=== PATIENT | male | born 1980 | race Caucasian/White ===

== ENCOUNTER 2017-09-04 10:05 | Emergency (ER) | payer BC, OTHER ==
[2017-09-04 10:57] VITALS: BP 126/89
--- NOTE | 2017-09-04 11:15 | UC ---
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 Last vomiting was midnight last night " sudden onset. last diarrhea before coming - no blood. last vomiting ~ 12 hrs ago. no wheezing. no asthma, denies smoking. recently moved back to [facility] from [facility]. did not check temp at home but had significant sweating last night. - History of Current Complaint Chief Complaint: UCRespiratory Stated Complaint: FLU SYMPTOMS Time Seen by Provider: 09/04/17 11:13 - Allergies/Home Medications Allergies/Adverse Reactions: Allergies Allergy/AdvReac Type Severity Reaction Status Date / Time No Known Allergies Allergy Verified 09/04/17 10:57 Home Medications: Home Medications Acetaminophen TAB* [Tylenol TAB*] 650 mg PO ONCE PRN 09/04/17 [History Confirmed 09/04/17] Escitalopram Oxalate [Lexapro 20 mg] 20 mg PO QPM 09/04/17 [History Confirmed ] Phenylephrine-Chlorpheniramine [Desiree-Tiver[place] Plus Cold & 5-2-10-325 mg] 2 cap PO ONCE PRN 09/04/17 [History Confirmed 09/04/17] PMH/Surg Hx/FS Hx/Imm Hx Previously Healthy: Yes - Surgical History Surgical History: None - Family History Known Family History: Positive: Hypertension - Social History Alcohol Use: Occasionally Substance Use Type: None Smoking Status (MU): Never Smoked Tobacco Review of Systems Constitutional: Fever, Chills, Fatigue Skin: Negative Eyes: Negative ENT: Negative Respiratory: Cough - which causes BARRETO. Cardiovascular: Negative Gastrointestinal: Negative Genitourinary: Negative Motor: Negative Neurovascular: Negative Musculoskeletal: Negative Neurological: Negative Psychological: Negative Is Patient Immunocompromised?: No All Other Systems Reviewed And Are Negative: Yes Physical Exam Triage Information Reviewed: Yes Appearance: Ill-Appearing - lying on exam table Vital Signs: Initial Vital Signs Temp 99.9 F 09/04/17 10:49 Pulse 113 09/04/17 10:49 Resp 20 09/04/17 10:49 BP 126/89 09/04/17 10:49 Pulse Ox 98 09/04/17 10:49 Vital Signs Reviewed: Yes Eye Exam: Normal ENT Exam: Normal ENT: Positive: Pharynx normal, TMs normal, Other: - no sinus tenderness Dental Exam: Normal Neck exam: Normal Neck: Positive: Supple, Nontender, No Lymphadenopathy Respiratory: Positive: No respiratory distress, Decreased breath sounds, Rhonchi - right, Wheezing - b/l. Negative: Crackles, Stridor Cardiovascular Exam: Normal Cardiovascular: Positive: RRR, No Murmur, Pulses Normal, Brisk Capillary Refill Abdomen Description: Positive: Nontender, Soft Musculoskeletal Exam: Normal Neurological Exam: Normal Psychological Exam: Normal Skin Exam: Normal UC Diagnostic Evaluation - Laboratory O2 Sat by Pulse Oximetry: 98 Respiratory Course/Dx - Course Course Of Treatment: CXR-LLL pneumonia. rapid flu negative. abx, prednisone, albuetol and rest. f/u 4 wks rpt CXR - Differential Dx/Diagnosis Differential Diagnosis/HQI/PQRI: Asthma, Bronchitis, Lower Resp Infection, Sinusitis Provider Diagnoses: pneumonia Discharge - Discharge Plan Condition: Stable Disposition: HOME Prescriptions: Albuterol HFA INHALER* [Ventolin HFA Inhaler*] 2 puff INH Q4H PRN #1 mdi PRN Reason: Cough Amoxicillin PO (*) [Amoxicillin 875 MG (*)] 875 mg PO BID #20 tab predniSONE TAB* [Deltasone TAB*] 40 mg PO DAILY #10 tab Patient Education Materials: Pneumonia (ED) Referrals: Dot Laguna [Primary Care Provider] - 2 Days Additional Instructions: -We discussed risks of prednisone including but not limited to anxiety, agitation, insomnia, GI upset, elevated blood pressures and blood sugar readings , adrenal crisis and avascular necrosis of the hip. -Make sure to take a probiotic daily while on antibiotics to help prevent a potential complication of antibiotic use called c diff. Some well known brands that can be found OTC are florastor, [employer] and [employer] ([employer]). Make sure to complete the entire prescription unless advised otherwise by your health care provider. -make sure you get a follow up chest xray in ~4 weeks to rule out an underlying pathology. -get lots of fluid and rest.
[2017-09-04] MEDS ORDERED: Ibuprofen TAB* 600 MG PO ONE (11:39)
--- NOTE | 2017-09-04 12:21 | RAD ---
INDICATION: Cough, fever, RIGHT rhonchi, bodyaches. COMPARISON: No relevant prior exams available on the [facility] PACS for comparison. TECHNIQUE: Dual energy PA and routine lateral views of the chest were obtained. REPORT: Mild airspace consolidation at the LEFT lung base involving the basilar segments of the LEFT lower lobe. Negative for pleural effusion or pneumothorax. The heart, pulmonary vasculature, and mediastinal contours are unremarkable. IMPRESSION: LEFT basilar pneumonia.
== END 2017-09-04 13:04 | disposition home or self-care (01) ==
LOC: UCCORT 10:05
DX: J18.9 Pneumonia, unspecified organism (principal)
CPT/HCPCS: 71020; 87502; 99212; A9270-GY; G0463